=== PATIENT | male | born 1985 | race Caucasian/White ===

== ENCOUNTER 2020-02-21 17:54 | Outpatient (REF) | payer OTHER, SELFPAY ==
[2020-02-21 20:16] LABS: Bilirubin Negative (Negative); Blood Negative (Negative); Clarity Clear (Clear); Glucose Negative (Negative); Ketones Negative (Negative); Leukocyte Esterase Negative (Negative); Nitrite Negative (Negative); Specific Gravity 1.015 (1.005-1.025); Urobilinogen 0.2 EU/dL (Up TO 0.2)
== END 2020-02-21 18:14 ==
LOC: NCHCN 17:54
PROVIDERS: PCP Family Medicine; Visit Provider Family Medicine
DX: R39.11 Hesitancy of micturition (principal)
CPT/HCPCS: 81003

== ENCOUNTER 2020-03-02 00:37 | Outpatient (CLI) | payer OTHER, SELFPAY ==
--- NOTE | 2020-03-02 10:52 | DI.CT_ITS ---
EXAM: CT ABDOMEN PELVIS WO CLINICAL HISTORY: Severe flank pain in a patient with h/o urolithiasis. TECHNIQUE: Imaging Protocol: Axial computed tomography images with coronal and sagittal reformatted images were created and reviewed. Oral: yes / no COMPARISON: ABD PELVIS WITH CONTRAST from 12/06/2017 FINDINGS: ABDOMEN: Lung Bases: Normal where visualized. The heart size is normal. Liver: Normal density. No measurable mass. Gallbladder and biliary tract: No radiodense calculus or dilation. Pancreas: Normal density, no abnormal calcifications or inflammatory process. Spleen: Normal. Kidneys: Normal size, contour and axis. Several small nonobstructing stones are seen in both kidneys . A left renal cyst is again noted. No ureteral calculi or bladder calculi are seen. No obstructiv e uropathy. No masses seen. Adrenal glands: No masses seen. Lymph nodes: Within normal limits. Abdominal Aorta: Abdominal portion non-dilated. PELVIS: Bladder: Nearly empty. No gross wall thickening or mass. Bowel: No obstruction or bowel wall thickening. The appendix appears normal. There is a moderate quita ntity of stool. Peritoneal cavity: No ascites, collection or mesenteric inflammatory response. Reproductive organs: Within normal limits. Bones: Within normal limits. IMPRESSION: Small bilateral nonobstructing renal calculi. DATA REPOSITORY: All CT scans at this facility are submitted to the National Radiology Data Registry (NRDR) Dose Index Registry (DIR) with the [employer] (ACR). RADIATION OPTIMIZATION: All CT scans at this facility use at least one of these dose optimization te chniques: automated exposure control; mA and/or kV adjustment per patient size (includes targeted exa ms where dose is matched to clinical indication); or iterative reconstruction.
== END 2020-03-02 00:57 ==
PROVIDERS: PCP Family Medicine; Visit Provider Family Medicine
DX: R10.31 Right lower quadrant pain (principal); N20.0 Calculus of kidney; N28.1 Cyst of kidney, acquired; Z87.442 Personal history of urinary calculi
CPT/HCPCS: 74176

== ENCOUNTER 2020-03-10 08:40 | Outpatient (CLI) | payer OTHER, SELFPAY ==
[2020-03-11 13:58] LABS: COVID-19 RT-PCR UVMMC Result Negative (Negative)
== END 2020-03-10 09:00 ==
PROVIDERS: PCP Family Medicine; Visit Provider Urology
DX: Z11.59 Encounter for screening for other viral diseases (principal)
CPT/HCPCS: U0003

== ENCOUNTER 2020-03-16 08:04 | Day surgery (SDC) | payer OTHER, SELFPAY ==
[2020-03-16] VITALS (20 sets, daily range): BP systolic 83–161; BP diastolic 53–104; PULSE 46–81; RESP 11–24; TEMP 36.4–37.1; O2SAT 95–100
--- NOTE | 2020-03-16 08:16 | HPE_ITS ---
Date of service: 03/16/20 Time of Service: 09:03 Assessment and Plan Assessment and plan (1) Kidney stones: Status: Acute Assessment and plan: Urinary his stones are nonobstructing, but his symptoms are consistent with his previous stone symptoms. We will move ahead with cystoscopy and bilateral ureteroscopy with stone extractions. The stones are small enough that I do not believe we would need to use a laser to fracture stones. History of Present Illness History of Present Illness Chief Complaint: Bilateral kidney stones Narrative: Rk is a 34-year-old gentleman here in urology due to recurrent kidney stones. He reports that he has had some flank pain that started mid December and has continued since then. It has now been 21/2 months. He states the discomfort first was on the left and at this point is b/l with the left > right for discomfort. He is experiencing nausea from the pain and has vomitted. He states that he is feeling urgency and frequency. He feels like he is kidney is swollen. He is having difficulty with trying to get comfortable. He has been using slippery elm and drinking beer to help get some sleep. He has been also taking intermittent ibuprofen. He has not been straining his urine nor seen blood in his urine. He says he feels like he needs to pass something but it gets stuck. He is not on Flomax. He reports that since he was 12 years ago he has been having kidney stones and knows that this is another kidney stone flare. He reports his PCP is imaging that revealed stones but no treatment was recommended. Last time he was seen for kidney stones within urology office was 2017. On the left side, his previous stones were 70% calcium oxalate monohydrate, 20% calcium phosphate and 10% calcium oxalate dihydrate. From the right kidney, his stone was 50% calcium phosphate, 30% calcium oxalate monohydrate and 20% calcium oxalate dihydrate. Review of Systems Narrative: No fevers or chills No vision change or dysphasia No diabetes or thyroid No shortness of breath, cough or hemoptysis No chest pain or palpitations No hepatitis, ulcers, jaundice, diarrhea or constipation No seizures, strokes or peripheral neuropathy No bleeding disorders or anemia No gout PFSH Social History Smoking/Tobacco Use Status: Former Tobacco Use Alcohol Intake: current Alcohol Intake frequency: holidays/special occasions only Drug use: Daily Substance use type: marijuana current occupation: [employer]ORY WORK Etelvina/Restorationist: No preference Special etelvina needs: No Do you feel safe at home: Yes Meds Home Medications and Allergies Home Medications Medication Instructions Recorded Confirmed Type ibuprofen 800 mg tablet 800 mg PO Q8H PRN #60 tab 03/02/20 03/16/20 Rx tamsulosin 0.4 mg capsule 0.4 mg PO QHS #14 cap 03/06/20 03/16/20 Rx Allergies Allergy/AdvReac Type Severity Reaction Status Date / Time imipramine Allergy unknown as Verified 03/16/20 08:17 child Penicillins Allergy SOB Verified 03/16/20 08:17 Exam Narrative Exam Narrative: His vital signs are documented elsewhere in the chart His chest wall motion is normal. He is not short of breath at rest. His lungs are clear Cardiac exam shows a regular rate and rhythm His abdomen is soft with no guarding or rebound tenderness He is awake and alert I reviewed his noncontrast CT scan from about 2 weeks ago. On the right side, there were 2 nonobstructing stones in the right upper pole. On the left side, there were 4 small nonobstructing stones in the lower pole. COVID-19 Screening Traveled to [place] from one of the affected countries or regions?: NO Medical treatment received for symptoms/illness related to travel?: preop Covid testing completed and negative
[2020-03-16] MEDS: Lactated Ringers 1,000 ML 80 ML IV ×2 (08:43→12:53)
[2020-03-16] MEDS: FAMOTIDINE 20 MG/50 ML BAG 200 MG IVPB (09:12)
[2020-03-16] MEDS: CIPROFLOXACIN 400 MG/200 ML BAG 200 MG IVPB (09:17)
[2020-03-16] MEDS: Lidocaine 2% Jelly 6 ML SYR (10:00)
--- NOTE | 2020-03-16 10:22 | W.PM.DSUDISC ---
Discharge Plan Disposition Patient Disposition: HOME Condition: Stable Discharge Details Attending Provider: Bladimir Magallanes Primary Care Provider: Jason Hinds Home Meds and New Rx's Prescriptions: No Action tamsulosin [Flomax] 0.4 mg capsule 0.4 mg PO QHS Qty: 14 RF: 0 hydrocodone-acetaminophen 5-325 mg tablet 1 - 2 tab PO Q6H MDD 8 PRN (Reason: pain) Qty: 30 RF: 0 ibuprofen 800 mg tablet 800 mg PO Q8H PRN (Reason: pain) Qty: 60 RF: 0 Discharge Instructions Additional Instructions: No need to strain urine Follow-up in 6 weeks with renal ultrasound Prescription for hydrocodone sent to pharmacy Activity:: Activity as Tolerated Shower/Bathe:: 24 hours Diet:: As Tolerated Discharge Orders Discharge Orders: Discharge Order (Routine); Ordered 03/16/20 Ordered By: Bladimir Magallanes DS: Diagnosis Discharge Diagnosis (1) Kidney stones: Status: Acute
--- NOTE | 2020-03-16 10:23 | DI.RAD_ITS ---
EXAM: XR RETROGRADE IN OR CLINICAL HISTORY: KIDNEY STONES. TECHNIQUE: 2D and realtime digital imaging was performed. CONTRAST MATERIAL: Please see procedure note. COMPARISON: CT CT ABDOMEN PELVIS WO from 03/02/2020 FINDINGS: Fluoroscopy was provided in the OR for guidance with retrograde examination. Please see procedure no te for details. FLUORO TIME: 18.0 seconds RADIATION DOSE DELIVERED:
--- NOTE | 2020-03-16 10:30 | W.PM.OP ---
Date of service: 03/16/20 Time of Service: 10:30 Operative Note Operative Note DATE OF PROCEDURE: 03/16/20 PRE-OP DIAGNOSIS: Bilateral kidney stones POST-OP DIAGNOSIS: same PROCEDURE: Cystoscopy, bilateral retrograde pyelogram, bilateral flexible ureteroscopy, bilateral stone evacuation SURGEON: Bladimir Magallanes ANESTHESIA: spinal ESTIMATED BLOOD LOSS: 0 PATHOLOGY: other (Stones sent for chemical analysis) COMPLICATIONS: None Patient was transported to: PACU Patient's condition: stable Indications: This is a 34-year-old gentleman who has a long history of kidney stones. He had been complaining of bilateral flank pain. His most recent CT scan showed nonobstructing stones, so there is question as to whether the stones were causing any of his pain. He presents for stone manipulation. Findings: Bilateral small nonobstructing kidney stones Procedure Description: The patient was brought to the operating room on 03/16/2020. After successful induction of spinal anesthesia he was placed in the dorsal lithotomy position. He was given a dose of preoperative IV antibiotics. His genitalia was prepped and draped. 2% Xylocaine jelly was instilled into the urethra to act as a local anesthetic. A 22 Mongolian rigid cystoscope was passed through the urethra into the bladder. The urethra and bladder were inspected with the 30 degree lens. The pendulous bulbous membranous urethra was appeared normal with no strictures. The prostatic urethra appeared normal as well. The bladder neck was entered the bladder mucosa was inspected. No papillary or nodular lesions were seen throughout the bladder. Both ureteral orifice ease were identified. We began on the left side and cannulated the left orifice with a 6 Mongolian access catheter. Retrograde pyelogram film was obtained by injecting Omnipaque through the access catheter under fluoroscopic guidance. No filling defects are seen in the ureter. From his previous CT scan we knew that his stones were in the lower pole calyx. We passed a Glidewire through the access catheter. We removed the access catheter and replaced it with a dual-lumen catheter. A second wire was then positioned. We chose 1 of the wires as a working wire and the second 1 is a safety wire. Ureteral access sheath was advanced over the working wire and that wire was removed. The flexible ureteroscope was introduced through the sheath up to the renal pelvis. We then inspected each of the calyces and identified stones in the lower pole calyces. Each of these was grasped and a ZeroTip stone basket and extracted. The largest of the stones was actually embedded into the calyceal mucosa. Once all visible stones have been extracted, we removed the sheath scope and safety wire. We then performed the same procedure on the right side. We introduced the cystoscope and identified the right ureteral orifice. We instilled Omnipaque through a 6 Mongolian access catheter and outlined the right ureter and collecting system. Again, no filling defects were seen in the ureter. We knew from the CT scan that his stones were in the upper pole calyces. We then introduced a wire through the access sheath and remove the sheath. We passed dual-lumen catheter over the wire then positioned a second wire. We chose 1 of the wires as a working wire and the second is a safety wire. We introduced a ureteral access sheath over the working wire and removed that wire. We introduced the flexible ureteroscope and inspected each of the calyces. In multiple upper pole calyces, we identified stones which were larger than the ones on the left. Each of the stones was grasped in a ZeroTip stone basket and extracted. The stones were also sent to pathology for chemical analysis. We elected not to place ureteral stents on either side. We removed the access sheath and safety wire along with the ureteroscope. The bladder was then drained. The patient tolerated this procedure well.
[2020-03-16] MEDS: Omnipaque 300 MG/ML 50 ML BTL (10:36)
[2020-03-16] MEDS: fentaNYL 100 MCG/2 ML VIAL IVP ×2 (10:55→11:40)
[2020-03-16] MEDS: Phenazopyridine 200 MG TAB PO (11:52)
[2020-03-16] MEDS: HYDROcodone 5/Acetaminophen 325 TAB PO ×2 (11:53→14:58)
[2020-03-16] MEDS: Midazolam 2 MG/2 ML VIAL IVP (12:25)
--- NOTE | 2020-03-16 13:37 | W.PM.PROGNOT ---
Date of Service Date of service: 03/16/20 Time of Service: 13:37 Assessment and Plan Assessment and plan (1) Postoperative pain: Status: Acute Assessment and plan: I do not have a good physiologic explanation for his pain (especially with the distribution he indicates). I have no evidence that his pain is related to urinary retention. Perhaps a muscle relaxer type medication might help. Subjective Subjective Interval history since last seen: He has been complaining of diffuse abdominal pain post operatively. He was sent back to PACU from [facility]. He is unable to describe the site of his pain well. He has not voided since his procedure. Exam Narrative Exam Narrative: I examined him while he was back in PACU He complains of pain when palpating all areas of his abdomen. He has no peritoneal signs I straight cathed him for only 200 cc of red tinged urine without clots. He had no significant pain improvement with catheterization Objective Objective Clinical Data: Vital Signs Temperature 36.5 C 03/16/20 13:10 Pulse 55 L 03/16/20 13:10 Pulse Rhythm Regular 03/16/20 08:18 Respiratory Rate 15 03/16/20 13:10 Respiratory Depth Normal 03/16/20 08:18 Blood Pressure 155/86 H 03/16/20 13:10 Pulse Oximetry 95 03/16/20 13:10 Respiratory End-tidal CO2 35 03/16/20 13:10 Oxygen Delivery Method Room Air 03/16/20 13:10 Oxygen Flow Rate 3 03/16/20 11:15 Pain Level 6 03/16/20 13:10 Intake & Output 03/15/20 03/16/20 03/16/20 23:59 11:59 23:59 Intake Total 800 / 904 104 / 904 Output Total 175 / 175 Balance 800 / 729 -71 / 729 Weight 57.8 kg Intake: IV 800 / 904 104 / 904 Output: Emesis 175 / 175 Other: Emesis Description None None
[2020-03-16] MEDS: LORazepam 2 MG/ML VIAL 0.5 MG IVP (13:42)
[2020-03-21 18:14] LABS: Source: Kidney
== END 2020-03-16 15:44 | disposition home or self-care (01) ==
PROVIDERS: PCP Family Medicine; Visit Provider Urology
PROC: (CPT 52352; principal; 2020-03-16 09:15)
DX: N20.0 Calculus of kidney (principal); G89.18 Other acute postprocedural pain
CPT/HCPCS: 52352; NC; 74420; 82365; J0744; J1885; J2001; J2060; J2250; J2405; J2704; J3010; Q9967

== ENCOUNTER 2020-04-28 07:41 | Outpatient (CLI) | payer OTHER, SELFPAY ==
--- NOTE | 2020-04-28 08:00 | DI.US_ITS ---
EXAM: US RENAL CLINICAL HISTORY: r/o hydronephrosis after ureteroscopy,bilat kidney stones, n20.0. TECHNIQUE: Sifuentes scale, color and spectral Doppler were used. COMPARISON: CT CT ABDOMEN PELVIS WO from 03/02/2020 FINDINGS: Renal size in cm: Right: 8.9 left: 10.3 Echogenicity: Normal Hydronephrosis: No Cyst or mass: No Nephrolithiasis: No. Calcifications on previous CT are not seen by ultrasound. Other findings: None Bladder:Not well evaluated due to lack of distention. Prevoid vol:8 cc Postvoid vol:Not performed Bilateral ureteral jets were visualized. IMPRESSION: No evidence hydronephrosis. No visible renal calculi. DATA REPOSITORY:
== END 2020-04-28 08:01 ==
PROVIDERS: PCP Family Medicine; Visit Provider Urology
DX: N20.0 Calculus of kidney (principal)
CPT/HCPCS: 76770